=== PATIENT | female | born 1995 | race Two or more races ===

== ENCOUNTER 2018-09-21 20:21 | Emergency (ER) | payer MEDICAID ==
[~2018-09-21] VITALS: Ht 182.9 cm; Wt 74.8 kg
[2018-09-21 20:30] VITALS: BP 117/62
--- NOTE | 2018-09-21 20:45 | NUR ---
ED Nurse Note: Pt arrived ED from Home, C/o nausea, vomiting today. Pt is A/O X 4. Vital signs stable at this time, waitng for orders.
--- NOTE | 2018-09-21 21:05 | Emergency Room Report ---
History of Present Illness General Chief Complaint: Vomiting Source: Patient Present Illness HPI Patient is a 23-year-old female presented after increased nausea and vomiting. Patient reportedly is 11 weeks . She denies any abdominal pain. She states this is her first . She reports having intermittent episodes where she had nonbilious nonbloody emesis. She denies any diarrhea. She denies any fever. She reports having a moderate headache. She denies any cough or trouble breathing. Allergies: Coded Allergies: No Known Allergies (Unverified , 09/21/18) Patient History Last Menstrual Period: now Now: Yes Reviewed Nursing Documentation: PMH: Agreed; PSxH: Agreed Nursing Documentation-PMH Past Medical History: No Stated History Review of Systems All Other Systems: negative except mentioned in HPI Physical Exam Vital Signs Date Time Temp Pulse Resp B/P (MAP) Pulse Ox O2 Delivery O2 Flow Rate FiO2 09/21/18 20:36 98.1 75 20 104/66 99 Room Air Sp02 EP Interpretation: reviewed, normal General Appearance: normal inspection, well appearing, no apparent distress, alert, GCS 15, non-toxic Head: normocephalic, atraumatic ENT: normal ENT inspection, hearing grossly normal, normal voice Neck: normal inspection, full range of motion, supple, no bony tend Respiratory: normal inspection, lungs clear, normal breath sounds, no respiratory distress, no retraction, no wheezing Cardiovascular #1: regular rate, rhythm, no edema Gastrointestinal: normal inspection, normal bowel sounds, non tender, soft, no guarding, no hernia Genitourinary: no CVA tenderness Musculoskeletal: normal inspection, back normal, normal range of motion Neurologic: normal inspection, alert, oriented x3, responsive, rn private duty III-XII nml as tested, speech normal Psychiatric: normal inspection, judgement/insight normal, mood/affect normal Skin: normal inspection, normal color, no rash Medical Decision Making Diagnostic Impression: Primary Impression: Hyperemesis gravidarum ER Course Patient is a 23-year-old female who presented after increased vomiting. Differential diagnosis include was not limited to hyperemesis gravidarum, dehydration, urinary tract infection, gastroneuritis among others. Patient has a benign exam and does not appear to require any further imaging or laboratory testing at this time. Patient was noted to have prior ultrasound for . She denies any pelvic pain. Patient was given Zofran in the emergency department. She was subsequently able to tolerate oral fluids.She is given Tylenol for mild headache. Patient was advised to follow-up with her OB/ MEDICAL REGISTRAR. She is advised to return if she had persistent vomiting or other concerns. Patient does not appear to be significantly dehydrated and does not appear to require laboratory testing. Last Vital Signs Date Time Temp Pulse Resp B/P (MAP) Pulse Ox O2 Delivery O2 Flow Rate FiO2 09/21/18 20:36 98.1 75 20 104/66 99 Room Air Status: improved Disposition: HOME, SELF-CARE Condition: Stable Scripts Ondansetron Odt* (ZOFRAN ODT*) 8 Mg Tab.rapdis 8 MG ORAL Q12H PRN for Nausea & Vomiting, #10 TAB 0 Refills Prov: Thompson Betancourt MD 09/21/18 Referrals: NON PHYSICIAN (PCP) Thompson Betancourt MD Sep 21, 2018 21:05
[2018-09-21] MEDS ORDERED: Ondansetron ODT 8mg tab ORAL ONE (21:15)
[2018-09-21] MEDS ORDERED: ONDANSETRON ODT8 MG ORAL (21:16)
[2018-09-21 21:55] LABS: APPEARANCE,URINE CLOUDY; BILIRUBIN, URINE NEGATIVE (NEGATIVE); GLUCOSE, URINE (UA) NEGATIVE (NEGATIVE); KETONES,URINE 2+ (NEGATIVE); LEUKOCYTE ESTERASE ,URINE 2+ (NEGATIVE); NITRITE,URINE NEGATIVE (NEGATIVE); PH,URINE 6.5 (4.5-8.0); PROTEIN,URINE 2+ (NEGATIVE); UROBILINOGEN,URINE 4 MG/DL (0.0-1.0)
[2018-09-21 21:56] VITALS: BP 108/64
--- NOTE | 2018-09-21 21:56 | NUR ---
ER DISCHARGE NOTE: Patient is cleared to be discharged per Dr. Betancourt. Pt is aox4 on room air with stable vital signs. Pt was given dc and prescription instructions, pt was able to verbalize understanding, pt id band removed . pt is able to ambulate with steady gait. pt took all belongings.
[2018-09-21 21:57] LABS: COLOR,URINE YELLOW
== END 2018-09-21 21:56 | disposition home or self-care (01) ==
LOC: EMR 20:55
DX: O21.0 Mild hyperemesis gravidarum (principal); Z3A.01 Less than 8 weeks gestation of pregnancy
CPT/HCPCS: 81003; 87086; 99283; Q0162